=== PATIENT | male | born 1985 | race Caucasian/White ===

== ENCOUNTER 2020-08-13 08:51 | Emergency (ER) | payer OTHER ==
[~2020-08-13] VITALS: Ht 172.7 cm; Wt 86.6 kg
[2020-08-13 08:58] VITALS: Ht 172.7 cm; Wt 86.6 kg
[2020-08-13 11:15] VITALS: BP 120/86
== END 2020-08-13 11:26 | disposition home or self-care (01) ==
LOC: ED 08:51
DX: S02.2XXA Fracture of nasal bones, initial encounter for closed fracture (principal); W22.8XXA Striking against or struck by other objects, initial encounter; Y93.89 Activity, other specified; Y92.89 Other specified places as the place of occurrence of the external cause; Y99.8 Other external cause status